=== PATIENT | male | born 1960 | race Caucasian/White ===

== ENCOUNTER 2021-10-21 04:47 | Emergency (ER) | payer OTHER ==
[~2021-10-21] VITALS: Ht 188 cm; Wt 81.6 kg
--- NOTE | 2021-10-21 05:06 | NUR ---
RAD AT BEDSIDE
[2021-10-21] MEDS ORDERED: IBUPROFEN 400 MG TABLET ONE (06:27)
[2021-10-21] MEDS ORDERED: IBUPROFEN 400 MG TABLET PO ONE (06:30)
[2021-10-21] MEDS ORDERED: IBUP-1957 PO (07:28)
--- NOTE | 2021-10-21 09:10 | NUR ---
Patient discharged to home in stable condition. Written and verbal after care instructions given. Patient verbalizes understanding of instruction.
[2021-10-21 09:11] VITALS: BP 140/87
--- NOTE | 2021-10-21 13:48 | NUR ---
"Pt. was discharged before SW can meet with pt. Pt. came back for tap card. SW met with pt. to provide homeless resources and a tap card. Pt. did not want to answer further questions. SW respected pt.'s wishes. YVAN spoke with ED nurse, and pt. signed homeless waiver before discharged. Resources Provided: [place] [facility]: SPA 2 | [facility] Address: Confidential (call for location ) Population Served: Samm # of Beds: 57 SPA 4 | [facility] Provider: Home at Last Address: [address] [place] [address], [id number] # of Beds: 49 Population Served: Samm SPA 6 | [facility] Provider: Home at Last Address: [address] [place] [id number] # of Beds: 49 Population Served: Samm Velazco Women Custodial Provider: Melissa Velazco [place] Address: [facility] [id number] # of Beds: 20 Population Served: Women [facility] Facility Provider: Home at Last Address: [address] [facility] [address] # of Beds: 30 Population Served: Women SPA 8 | [facility] Provider: Estrellita Address: [address] [facility] [address] # of Beds: 65 Population Served: Samm"
== END 2021-10-21 09:12 | disposition home or self-care (01) ==
LOC: ER 04:49
DX: S70.02XA Contusion of left hip, initial encounter (principal); S40.012A Contusion of left shoulder, initial encounter; S50.02XA Contusion of left elbow, initial encounter; I10 Essential (primary) hypertension; Z59.00 Homelessness unspecified; W18.39XA Other fall on same level, initial encounter; Y93.89 Activity, other specified; Y92.89 Other specified places as the place of occurrence of the external cause; Y99.8 Other external cause status
CPT/HCPCS: 73030-TC; 73080-TC; 73502